=== PATIENT | female | born 1990 | race Two or more races ===

== ENCOUNTER 2016-11-28 10:40 | Emergency (ER) | payer OTHER ==
[~2016-11-28] VITALS: Ht 165.1 cm; Wt 92.0 kg
[2016-11-28 10:43] VITALS: BP 122/88
[2016-11-28] MEDS ORDERED: BACITRACIN ZINC OINT 500U/GM, 0.9 GM ONE (11:07)
== END 2016-11-28 12:24 | disposition home or self-care (01) ==
LOC: ED 11:37
DX: S67.194A Crushing injury of right ring finger, initial encounter (principal); X58.XXXA Exposure to other specified factors, initial encounter; Y93.89 Activity, other specified; Y92.69 Other specified industrial and construction area as the place of occurrence of the external cause; Y99.0 Civilian activity done for income or pay
CPT/HCPCS: 99284

== ENCOUNTER 2018-10-15 07:03 | Emergency (ER) | payer OTHER ==
[~2018-10-15] VITALS: Ht 165.1 cm; Wt 91.9 kg
--- NOTE | 2018-10-15 07:20 | NUR ---
Pt ambulates with steady gait and balance. NADN. No obvious defecits observed. Pt c/o n/v/d starting this early am. Pt reports diarrhea "10-12" times and multiple episodes of vomitting. Pt denies cp, sob, trauma, or syncope. CMS intact. Pt denies blood in urine, stool, or emesis. Bedrail up for safety measures. Call light within reach. Pt connected to NIBP and continous pulse ox. Spouse at bedside. Warm blanket provided for comfort measures. No other needs expressed at this time.
[2018-10-15] MEDS ORDERED: ONDANSETRON 2MG/ML, 2ML ONE (07:29)
[2018-10-15] MEDS ORDERED: MORPHINE SULFATE 4 MG/ML, 1ML IVPush PRN (07:30)
[2018-10-15] MEDS ORDERED: SODIUM CHLORIDE FLUSH 10ML SYR IVF ONE (07:30)
[2018-10-15] MEDS ORDERED: ONDANSETRON 2MG/ML, 2ML IVPush ONE (07:30)
[2018-10-15] MEDS ORDERED: MORPHINE SULFATE 4 MG/ML, 1ML ONE (07:30)
[2018-10-15 07:48] LABS: BASOPHILS # (AUTO) 0.03 x10^3/uL (0-0.1); BASOPHILS % (AUTO) 0 % (0-1); EOSINOPHILS # (AUTO) 0.09 x10^3/uL (0-0.4); EOSINOPHILS % (AUTO) 1 % (1-7); LYMPHOCYTES # (AUTO) 2.37 x10^3/uL (1-3.4); LYMPHOCYTES % (AUTO) 20 % (22-44); MD NO; MEAN CORPUSCULAR HEMOGLOBIN 28.5 pg (27.0-34.8); MEAN CORPUSCULAR HGB CONC 33.1 g/dL (32.4-35.8); MEAN CORPUSCULAR VOLUME 86.2 fL (80-100); MEAN PLATELET VOLUME 6.8 fL (7.4-10.4); MONOCYTES % (AUTO) 3 % (2-9); NEUTROPHILS # (AUTO) 9.01 x10^3/uL (1.8-6.8); NEUTROPHILS % (AUTO) 76 % (42-75); PLATELET COUNT 294 x10^3/uL (130-400); RED BLOOD COUNT 4.69 x10^6/uL (3.82-5.3)
[2018-10-15 07:59] LABS: ALBUMIN 2.8 g/dL (3.4-5.0); ANION GAP 6 mmol/L (5-15); CALCIUM 8.6 mg/dL (8.5-10.1); CHLORIDE 109 mmol/L (98-107)
[2018-10-15 08:05] LABS: ALANINE AMINOTRANSFERASE 12 U/L (12-78); ALKALINE PHOSPHATASE 66 U/L (45-117); CREATININE 0.76 mg/dL (0.55-1.02); TOTAL PROTEIN 7.1 g/dL (6.4-8.2)
[2018-10-15 08:07] LABS: BILIRUBIN,TOTAL 0.2 mg/dL (0.2-1.0)
[2018-10-15] MEDS ORDERED: OMNIPAQUE 350 MG/ML, 100ML BOTTLE ONE (08:49)
--- NOTE | 2018-10-15 08:50 | NUR ---
Provided report to CARMEN Casillas. All questions answered. CARMEN Casillas to assume care of pt.
[2018-10-15] MEDS ORDERED: PANTOPRAZOLE 40 MG IV ONE (08:56)
[2018-10-15 09:05] LABS: CULTURE INDICATED? YES; MICROSCOPIC INDICATED
[2018-10-15 09:22] VITALS: BP 121/79
--- NOTE | 2018-10-15 09:22 | NUR ---
ASSUMED CARE. PT STATES NAUSEA MUCH IMPROVED AND EPIGASTRIC PAIN PRESENT BUT ALSO IMPROVED SINCE MEDICATED FOR SAME. AWAITING DISPO
== END 2018-10-15 10:01 | disposition home or self-care (01) ==
LOC: ED 08:44
DX: R10.13 Epigastric pain (principal); R11.2 Nausea with vomiting, unspecified; R19.7 Diarrhea, unspecified
CPT/HCPCS: 36415; 74177; 76700; 80053; 81001; 83690; 84703; 85025; 87086; 96374; 96375; 99284; J2270; J2405; Q9967

== ENCOUNTER 2020-01-26 12:40 | Emergency (ER) | payer OTHER ==
[~2020-01-26] VITALS: Ht 165.1 cm; Wt 98.5 kg
--- NOTE | 2020-01-26 13:26 | NUR ---
SENT FROM URGENT CARE FOR WORK UP. PT WITH RIGHT FLANK PAIN RADIATES ACROSS ABD TO RUQ, PERIUMBILICAL REGION FOR SEVERAL DAYS. HAD NEG URINE DIP AT URGENT CARE. PT UNABLE TO PROVIDE URINE AT THIS TIME, BUT REQUESTED. AWAITING ERP EVAL.
[2020-01-26] MEDS ORDERED: SODIUM CHLORIDE FLUSH 10ML SYR IVF ONE (13:30)
[2020-01-26] MEDS ORDERED: FAMOTIDINE 20 MG/2 ML IVPush ONE (13:30)
[2020-01-26] MEDS ORDERED: ONDANSETRON 2MG/ML, 2ML IVPush ONE (13:30)
[2020-01-26] MEDS ORDERED: MORPHINE SULFATE 4 MG/ML, 1ML ONE ×2 (13:34→16:49)
[2020-01-26] MEDS ORDERED: ONDANSETRON 2MG/ML, 2ML ONE ×2 (13:34→16:49)
[2020-01-26] MEDS ORDERED: FAMOTIDINE 20 MG/2 ML ONE (13:35)
[2020-01-26] MEDS: MORPHINE SULFATE 4 MG/ML, 1ML IVPush PRN ×2 (13:45→16:53)
--- NOTE | 2020-01-26 13:51 | NUR ---
IV STARTED BLOODS DRWN AND SENT, REQUESTED URINE, POC UPDATED. CONT PULSE OX ON. SIDE RAILS UP. WAITING FOR ULTRASOUND
[2020-01-26 14:15] LABS: MEAN CORPUSCULAR HEMOGLOBIN 27.3 pg (27.0-34.8); MEAN CORPUSCULAR HGB CONC 31.8 g/dL (32.4-35.8); MEAN PLATELET VOLUME 7.5 fL (7.4-10.4); PLATELET COUNT 273 x10^3/uL (130-400); RED BLOOD COUNT 4.87 x10^6/uL (3.82-5.3); RED CELL DISTRIBUTION WIDTH 13.9 % (9.6-15.2)
[2020-01-26 14:18] LABS: ALANINE AMINOTRANSFERASE 18 U/L (12-78); ALBUMIN 3.2 g/dL (3.4-5.0); ANION GAP 8 mmol/L (5-15); CALCIUM 9.5 mg/dL (8.5-10.1); CHLORIDE 106 mmol/L (98-107); CREATININE 0.77 mg/dL (0.55-1.02)
[2020-01-26 14:23] LABS: ALKALINE PHOSPHATASE 79 U/L (45-117); BILIRUBIN,TOTAL 0.5 mg/dL (0.2-1.0); TOTAL PROTEIN 7.9 g/dL (6.4-8.2)
--- NOTE | 2020-01-26 14:36 | NUR ---
ULTRASOUND NOW. PAIN BETTER.
[2020-01-26 14:50] LABS: MD YES
[2020-01-26 14:52] LABS: <PLATELET ESTIMATE> ADEQUATE; <PLT MORPHOLOGY> NORMAL PLT MORPH; <RBC MORPHOLOGY> NORMAL; BAND#(MANUAL) 0.74 x10^3/uL; BANDS%(MANUAL) 4 % (0-7); LYMPH#(MANUAL) 2.23 x10^3/uL (1-3.4); LYMPHS% (MANUAL) 12 % (22-44); METAMYELOCYTES# (MANUAL) 0.19 x10^3/uL (0-0); METAMYELOCYTES% (MANUAL) 1 % (0-1); MONOS#(MANUAL) 0.19 x10^3/uL (0.3-2.7); MONOS% (MANUAL) 1 % (2-9); SEG#(MANUAL) 15.25 x10^3/uL (1.8-6.8); SEGS% (MANUAL) 82 % (42-75)
[2020-01-26 15:14] LABS: MICROSCOPIC NOT IND
[2020-01-26] MEDS ORDERED: OMNIPAQUE 350 MG/ML, 100ML BOTTLE ONE (15:48)
--- NOTE | 2020-01-26 16:05 | NUR ---
Wesly RN note: Pt c/o "chills" after having her CT scan. Pt provided warm blanket. Continuous oxygen and BP Monitors are in place, all safety measures observed. Dr. Sandoval updated on pt condition, no new orders recieved. Reported events to radha Griffin RN.
[2020-01-26 16:57] LABS: HCT (SEDRATE) 41.9 % (34.6-47.8)
[2020-01-26] MEDS ORDERED: ACETAMINOPHEN 325 MG TABLET PO PRN (17:00)
[2020-01-26] MEDS ORDERED: morphine SULFATE 10 MG/ML, 1ML IVPush PRN (17:00)
[2020-01-26] MEDS ORDERED: ONDANSETRON 2MG/ML, 2ML IVPush PRN (17:00)
[2020-01-26] MEDS ORDERED: SODIUM CHLORIDE 0.9% 1,000 ML IV SCH (17:00)
--- NOTE | 2020-01-26 17:21 | NUR ---
PT RESTING COMFORTABLY, PAIN BETTER POST MORPHINE ADMIN, IVF ADMIN. STILL HAS SOME URQ ABD REBOUND TENDERNESS. VSS. PT IS BEING ADMITTED. WILL CONTINUE TO MONITOR.
[2020-01-26] MEDS ORDERED: [UNRECOGNIZED DRUG - OTHER] (17:29)
--- NOTE | 2020-01-26 18:29 | NUR ---
BREAK RN: PT STATES SHE FEELS WORSE AND DOES NOT WANT TO BE ADMITTED. EXPLAINED ADMIT AND NPO, PT AND FAMILY WOULD LIKE TO SPEAK TO MD.
--- NOTE | 2020-01-26 19:19 | NUR ---
PT WANTS TO AMA, DOES NOT WANT TO STAY IN HOSPITAL. PAGED HOSPITALIST DR LANI HAGER SEVERAL TIMES.
--- NOTE | 2020-01-26 19:54 | NUR ---
PT HAS BEEN EDUCATED MANY TIMES ON THE VISITOR POLICY OF THIS HOSPITAL. SHE SHOULD BE AWARE OF IT SHE WORKS HERE BUT I HAVE HAD TO TELL HER SEVERAL TIMES ONLY 1 VISITOR AND HE HAS TO STAY IN THE ROOM AND HE CAN NOT WEAR GLOVES AROUND THE UNIT. 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
--- NOTE | 2020-01-26 20:27 | NUR ---
PT SPOKE WITH HOSPITALIST PT HAS DECIDED TO AMA SHE DOESN'T WANT TO STAY WITHOUT HER . VSS. SIGNED AMA FORM. GIVEN INSTRUCT FOR HIDA SCAN.
[2020-01-26 20:28] VITALS: BP 122/71
--- NOTE | 2020-01-26 20:29 | NUR ---
IV WAS DC CATH INTACT. WC PROVIDED TO FOR TRANSPORT TO [facility].
== END 2020-01-26 20:30 ==
LOC: ED 13:33 → UNDOADMIN 16:35 → EDIP 16:35 → ED 20:30
DX: R10.11 Right upper quadrant pain (principal); R10.13 Epigastric pain; D72.829 Elevated white blood cell count, unspecified; R11.0 Nausea; R63.0 Anorexia; R00.0 Tachycardia, unspecified
CPT/HCPCS: 36415; 74177; 76700; 80053; 81003; 83690; 84145; 84703; 85025; 85651; 86140; 96361; 96374; 96375; 96376; 99285; J2270; J2405; J7030; Q9967

== ENCOUNTER 2020-01-27 10:51 | Outpatient (CLI) | payer OTHER ==
[~2020-01-27 10:51] MED LIST: [UNRECOGNIZED DRUG - OTHER]
[2020-01-27] MEDS ORDERED: SINCALIDE (KINEVAC) 5 MCG ONE (12:25)
== END 2020-01-27 23:59 | disposition home or self-care (01) ==
LOC: RAD 10:51
PROVIDERS: ATTEND Nurse Practitioner
DX: K82.8 Other specified diseases of gallbladder (principal)
CPT/HCPCS: 78227; A9537; J2805

== ENCOUNTER 2020-05-05 00:37 | Emergency (ER) | payer OTHER ==
--- NOTE | 2020-05-05 00:56 | NUR ---
Recent HIDA scan, pt c/o intermittent RUQ pain. Waiting for ERP evaluation. AIDET provided.
[2020-05-05] MEDS ORDERED: ONDANSETRON ODT 4 MG ONE ×2 (01:06→03:13)
[2020-05-05] MEDS ORDERED: HYDROcodone/APAP 5/325 TABLET ONE (01:07)
--- NOTE | 2020-05-05 01:11 | NUR ---
Medicated per order. Requested urine sample with instruct on clean catch.
--- NOTE | 2020-05-05 01:27 | NUR ---
Urine collected and sent.
[2020-05-05] MEDS ORDERED: HYDROcodone/APAP 5/325 TABLET PO ONE (01:30)
[2020-05-05] MEDS ORDERED: ONDANSETRON ODT 4 MG PO ONE (01:30)
[2020-05-05 01:32] LABS: BASOPHILS % (AUTO) 1 % (0-1); EOSINOPHILS % (AUTO) 2 % (1-7); LYMPHOCYTES % (AUTO) 46 % (22-44); MEAN CORPUSCULAR HEMOGLOBIN 28.7 pg (27.0-34.8); MEAN CORPUSCULAR HGB CONC 33.4 g/dL (32.4-35.8); MEAN PLATELET VOLUME 6.9 fL (7.4-10.4); MONOCYTES % (AUTO) 6 % (2-9); NEUTROPHILS % (AUTO) 46 % (42-75); PLATELET COUNT 294 x10^3/uL (130-400); RED BLOOD COUNT 4.61 x10^6/uL (3.82-5.3); RED CELL DISTRIBUTION WIDTH 13.4 % (9.6-15.2)
[2020-05-05 01:35] LABS: MD NO
[2020-05-05 01:36] LABS: MICROSCOPIC INDICATED
[2020-05-05 01:40] LABS: ALANINE AMINOTRANSFERASE 14 U/L (12-78); ALBUMIN 2.9 g/dL (3.4-5.0); ANION GAP 5 mmol/L (5-15); CALCIUM 8.6 mg/dL (8.5-10.1); CHLORIDE 110 mmol/L (98-107)
[2020-05-05 01:44] LABS: ALKALINE PHOSPHATASE 68 U/L (45-117); BILIRUBIN,TOTAL 0.2 mg/dL (0.2-1.0); TOTAL PROTEIN 7.3 g/dL (6.4-8.2)
[2020-05-05] MEDS ORDERED: HYDROmorphone 1 MG/ML, 1ML INJ ONE (02:15)
[2020-05-05] MEDS ORDERED: HYDROmorphone 1 MG/ML, 1ML INJ IM ONE (02:30)
--- NOTE | 2020-05-05 03:10 | NUR ---
Pt reports decrease in pain since meds. Rx and instruct given to pt to fu with pcp/general surgeon. Pt and verbalize understanding of meds and f/u. To return to ER if worse or concerns. Pt not driving, VSS.
[2020-05-05 03:11] VITALS: BP 135/78
== END 2020-05-05 03:27 ==
LOC: ED 02:11
DX: K80.50 Calculus of bile duct without cholangitis or cholecystitis without obstruction (principal); K59.00 Constipation, unspecified; G24.9 Dystonia, unspecified
CPT/HCPCS: 36415; 80053; 81001; 83690; 84703; 85025; 87086; 96372; 99283; J1170; Q0162

== ENCOUNTER → 2020-05-10 | Outpatient (CLI) | payer OTHER ==
[~2020-05-10] MED LIST changes: +ETHI1TAB8 PO
== END | disposition home or self-care (01) ==
LOC: STAR 14:47
PROVIDERS: ATTEND Surgery
DX: Z20.822 Contact with and (suspected) exposure to COVID-19 (principal); K82.8 Other specified diseases of gallbladder
CPT/HCPCS: 87635

== ENCOUNTER 2020-05-14 13:06 | Day surgery (SDC) | payer OTHER ==
[~2020-05-14] VITALS: Ht 165.1 cm; Wt 96.5 kg
[~2020-05-14 13:06] MED LIST changes: +BUPIVACAINE/PF 0.5% ONE; +EPINEPHRINE 1 MG/ML, 1ML ONE
[2020-05-14] MEDS ORDERED: INDOCYANINE GREEN 25 MG VIAL IV ONE (13:30)
[2020-05-14] MEDS ORDERED: CHLORHEXIDINE 15 ML UDC MM ONE (13:30)
[2020-05-14] MEDS ORDERED: LIDOCAINE-MPF 1%, 2ML INFIL ONE (13:30)
[2020-05-14] MEDS ORDERED: LACTATED RINGERS 1,000 ML IV SCH (13:30)
[2020-05-14 13:40] VITALS: BP 133/92
[2020-05-14] MEDS ORDERED: INDOCYANINE GREEN 25 MG VIAL ONE (13:50)
[2020-05-14 14:12] LABS: HCG UR SG 1.009 (1.003-1.030)
[2020-05-14] MEDS ORDERED: MIDAZOLAM 1 MG/ML, 2ML ONE (15:27)
[2020-05-14] MEDS ORDERED: SCOPOLAMINE 1MG PATCH TD ONE (15:27)
[2020-05-14] MEDS ORDERED: FENTANYL PF 250 MCG/5ML ONE (15:31)
[2020-05-14] MEDS ORDERED: MEPERIDINE/PF 25MG/0.5ML IVPush PRN (16:30)
[2020-05-14] MEDS ORDERED: LABETALOL 5MG/ML, 20ML IV PRN (16:30)
[2020-05-14] MEDS ORDERED: KETOROLAC 30 MG/1 ML IVPush PRN (16:30)
[2020-05-14] MEDS ORDERED: OXYcodone 5 MG/5 ML ORAL.SOL UDC PO PRN (16:30)
[2020-05-14] MEDS ORDERED: ENOXAPARIN 40 MG/0.4 ML SQ SCH (16:30)
[2020-05-14] MEDS ORDERED: morphine SULFATE 10 MG/ML, 1ML IVPush PRN (16:30)
[2020-05-14] MEDS ORDERED: HYDROcodone/APAP 5/325 TABLET PO PRN (16:30)
[2020-05-14] MEDS ORDERED: DIAZEPAM 5 MG/ML, 2ML IVPush PRN (16:30)
[2020-05-14] MEDS ORDERED: ACETAMINOPHEN 325 MG TABLET PO PRN (16:30)
[2020-05-14] MEDS ORDERED: PROMETHAZINE 25 MG/ML, 1ML IV PRN (16:30)
[2020-05-14] MEDS ORDERED: ALBUTEROL SULFATE 2.5 MG/3 ML NPPB PRN (16:30)
[2020-05-14] MEDS ORDERED: ONDANSETRON 2MG/ML, 2ML IVPush PRN (16:30)
[2020-05-14] MEDS ORDERED: hydrALAzine 20 MG/ML, 1ML IV PRN (16:30)
[2020-05-14] MEDS ORDERED: HYDROmorphone 2 MG/ML, 1ML IVPush PRN (16:30)
[2020-05-14] MEDS ORDERED: KETOROLAC 30 MG/1 ML IV PRN (16:30)
[2020-05-14] MEDS ORDERED: HYDR-1067 PO (16:32)
[2020-05-14] MEDS ORDERED: CEFAZOLIN 1,000 MG ONE (16:33)
[2020-05-14] MEDS ORDERED: ONDANSETRON 2MG/ML, 2ML ONE ×2 (16:33→16:39)
[2020-05-14] MEDS ORDERED: SUCCINYLCHOLINE 20 MG/ML, 10ML ONE (16:33)
[2020-05-14] MEDS ORDERED: PROPOFOL 10 MG/ML, 20ML ONE (16:33)
[2020-05-14] MEDS ORDERED: DEXAMETHASONE 4 MG/ML, 1ML ONE (16:33)
[2020-05-14] MEDS ORDERED: NEOSTIGMINE 1 MG/ML, 10ML ONE (16:33)
[2020-05-14] MEDS ORDERED: GLYCOPYRROLATE 0.2MG/1ML, 5ML ONE (16:33)
[2020-05-14] MEDS ORDERED: ROCURONIUM 10MG/ML,5ML ONE (16:33)
[2020-05-14] MEDS ORDERED: ONDA-89 PO (16:34)
[2020-05-14] MEDS ORDERED: FENTANYL PF 100 MCG/2ML ONE ×2 (16:39→16:59)
[2020-05-14] MEDS ORDERED: PROMETHAZINE 25 MG/ML, 1ML ONE (16:39)
[2020-05-14] MEDS ORDERED: HYDROmorphone 1 MG/ML, 1ML INJ ONE (16:49)
[2020-05-14] MEDS: FENTANYL PF 100 MCG/2ML IV PRN ×3 (16:50→17:16)
[2020-05-14] MEDS ORDERED: DIAZEPAM 5 MG/ML, 2ML ONE (16:59)
[2020-05-14] MEDS ORDERED: KETOROLAC 30 MG/1 ML ONE (17:06)
[2020-05-14] MEDS ORDERED: OXYcodone 5 MG/5 ML ORAL.SOL UDC ONE (17:19)
== END 2020-05-14 19:09 | disposition home or self-care (01) ==
LOC: OUT 13:06
PROVIDERS: ATTEND Surgery
DX: K81.1 Chronic cholecystitis (principal); K82.8 Other specified diseases of gallbladder; K66.0 Peritoneal adhesions (postprocedural) (postinfection); E66.9 Obesity, unspecified; Z68.35 Body mass index [BMI] 35.0-35.9, adult; Z79.899 Other long term (current) drug therapy; Z72.89 Other problems related to lifestyle; Z83.3 Family history of diabetes mellitus
CPT/HCPCS: 47563; 81025; 88304; J0171; J0330; J0690; J1100; J1170; J1885; J2250; J2405; J2704; J2710; J3010; J7120; S2900

== ENCOUNTER → 2020-05-28 | Outpatient (CLI) | payer OTHER ==
[~2020-05-28] MED LIST changes: -BUPIVACAINE/PF 0.5% ONE; -EPINEPHRINE 1 MG/ML, 1ML ONE; +HYDR-1067 PO; +OMNIPAQUE 350 MG/ML, 100ML BOTTLE ONE; +ONDA-89 PO
[2020-05-28 17:06] LABS: BASOPHILS % (AUTO) 1 % (0-1); EOSINOPHILS % (AUTO) 1 % (1-7); LYMPHOCYTES % (AUTO) 39 % (22-44); MEAN CORPUSCULAR HEMOGLOBIN 28.3 pg (27.0-34.8); MEAN CORPUSCULAR HGB CONC 33.2 g/dL (32.4-35.8); MONOCYTES % (AUTO) 6 % (2-9); NEUTROPHILS % (AUTO) 53 % (42-75); PLATELET COUNT 261 x10^3/uL (130-400); RED BLOOD COUNT 4.34 x10^6/uL (3.82-5.3); RED CELL DISTRIBUTION WIDTH 13.5 % (9.6-15.2)
[2020-05-28 17:09] LABS: MD NO
[2020-05-28 17:17] LABS: ALANINE AMINOTRANSFERASE 15 U/L (12-78); ALBUMIN 2.8 g/dL (3.4-5.0); ANION GAP 10 mmol/L (5-15); CALCIUM 8.7 mg/dL (8.5-10.1); CHLORIDE 104 mmol/L (98-107); CREATININE 0.72 mg/dL (0.55-1.02)
[2020-05-28 17:19] LABS: ALKALINE PHOSPHATASE 67 U/L (45-117); BILIRUBIN,TOTAL 0.2 mg/dL (0.2-1.0); TOTAL PROTEIN 6.9 g/dL (6.4-8.2)
== END | disposition home or self-care (01) ==
LOC: RAD 15:14
PROVIDERS: ATTEND Surgery
DX: R10.9 Unspecified abdominal pain (principal); Z90.49 Acquired absence of other specified parts of digestive tract
CPT/HCPCS: 36415; 74177; 80053; 85025; Q9967

== ENCOUNTER → 2020-09-18 | Outpatient (CLI) | payer OTHER ==
[~2020-09-18] MED LIST changes: -HYDR-1067 PO; +HYDR-2214 PO; -OMNIPAQUE 350 MG/ML, 100ML BOTTLE ONE
== END | disposition home or self-care (01) ==
LOC: LAB 10:32
PROVIDERS: ATTEND Student in an Organized Health Care Education/Training Program
DX: Z32.01 Encounter for pregnancy test, result positive (principal)
CPT/HCPCS: 36415; 84702